=== PATIENT | female | born 1995 | race Two or more races ===

== ENCOUNTER → 2023-06-09 | Outpatient (CLI) | payer BC ==
[2023-06-09 11:13] LABS: Basophils # (auto) 0 10 ^3/uL (0-0.2); Basophils % (auto) 0.3 % (0.0-2.0); Eosinophils # (auto) 0.2 10 ^3/uL (0-0.8); Hematocrit 39.7 % (36.0-46.0); Hemoglobin 13.6 g/dL (12.2-16.2); Lymphocytes # (auto) 2.2 10 ^3/uL (0.4-5.4); Lymphocytes % (auto) 27.2 % (10.0-50.0); Mean Corpuscular Hemoglobin 30.7 pg (28.0-32.0); Mean Corpuscular Hgb Conc. 34.3 g/dL (32.0-36.0); Mean Corpuscular Volume 89.5 fL (80.0-100.0); Monocytes # (auto) 0.6 10 ^3/uL (0-1.3); Neutrophils % (auto) 62.5 % (37.0-80.0); Nucleated Red Blood Cells % 0.1 %; Red Blood Cells 4.43 10^6/uL (4.0-5.20)
[2023-06-09 11:51] LABS: Alanine Aminotransferase 13 U/L (7-40); Albumin 4.8 g/dL (3.2-4.8); Alkaline Phosphatase 91 U/L (46-116); Anion Gap 10 (5-15); Aspartate Aminotransferase 14 U/L (13-40); BUN/Creatinine Ratio 8.7 (10.0-20.0); Blood Urea Nitrogen 6 mg/dL (9-23); Calcium 9.9 mg/dL (8.5-10.1); Carbon Dioxide 24 mmol/L (20-30); Chloride 104 mmol/L (98-107); Cholesterol 170 mg/dL (< 200); Glucose 90 mg/dL (74-106); LDL Cholesterol 107 mg/dL (< 100); Potassium 3.9 mmol/L (3.5-5.1); Sodium 138 mmol/L (136-145); Triglycerides 116 mg/dL (< 150)
[2023-06-09 11:52] LABS: Bilirubin, Total 0.5 mg/dL (0.2-1.0); HDL Cholesterol 52 mg/dL (40-59); Total Protein 7.7 g/dL (5.7-8.2)
[2023-06-09 11:56] LABS: Urine Bacteria NONE SEEN /hpf (None Seen); Urine Blood TRACE /uL (Negative); Urine Clarity Clear (Clear); Urine Color Yellow (Yellow); Urine Mucus FEW (None Seen); Urine Protein, UAD Negative (Negative); Urine Urobilinogen Normal (Negative); Urine WBC <1 /hpf (0 - 5)
== END | disposition home or self-care (01) ==
LOC: LAB 10:37
DX: Z00.01 Encounter for general adult medical examination with abnormal findings (principal); R79.89 Other specified abnormal findings of blood chemistry; E78.5 Hyperlipidemia, unspecified; E55.9 Vitamin D deficiency, unspecified
CPT/HCPCS: 36415; 80053; 80061; 81001; 82306; 83036; 84439; 84443; 85025

== ENCOUNTER → 2024-03-12 | Outpatient (CLI) | payer BC | END | disposition home or self-care (01) | LOC: LAB 15:39 | DX: Z32.00 Encounter for pregnancy test, result unknown (principal) | CPT/HCPCS: 36415; 84702 ==

== ENCOUNTER → 2024-03-14 | Outpatient (CLI) | payer BC | END | disposition home or self-care (01) | LOC: LAB 08:36 | DX: Z32.00 Encounter for pregnancy test, result unknown (principal) | CPT/HCPCS: 36415; 84702 ==

== ENCOUNTER → 2024-03-19 | Outpatient (CLI) | payer BC ==
[2024-03-19 09:58] LABS: Basophils # (auto) 0 10 ^3/uL (0-0.2); Basophils % (auto) 0.3 % (0.0-2.0); Eosinophils # (auto) 0.3 10 ^3/uL (0-0.8); Eosinophils % (auto) 2.7 % (0.0-7.0); Hematocrit 37.2 % (36.0-46.0); Hemoglobin 12.6 g/dL (12.2-16.2); Lymphocytes # (auto) 2.6 10 ^3/uL (0.4-5.4); Lymphocytes % (auto) 24.3 % (10.0-50.0); Mean Corpuscular Hemoglobin 30.7 pg (28.0-32.0); Mean Corpuscular Hgb Conc. 33.9 g/dL (32.0-36.0); Mean Corpuscular Volume 90.6 fL (80.0-100.0); Monocytes # (auto) 0.7 10 ^3/uL (0-1.3); Monocytes % (auto) 6.5 % (0.0-12.0); Neutrophils % (auto) 66.2 % (37.0-80.0); Platelet Count (auto) 290 10^3/uL (140-450); Red Cell Distribution Width 13.5 % (11.8-14.3); White Blood Cell 10.6 10^3/uL (4.4-10.8)
[2024-03-19 10:03] LABS: Urine Bacteria FEW /hpf (None Seen); Urine Blood Negative /uL (Negative); Urine Clarity Clear (Clear); Urine Color Light-Yellow (Yellow); Urine Protein, UAD Negative (Negative); Urine Specific Gravity 1.014 (1.001-1.035); Urine Urobilinogen Normal (Negative); Urine WBC <1 /hpf (0 - 5)
[2024-03-19 10:55] LABS: Alanine Aminotransferase 17 U/L (7-40); Albumin 4.6 g/dL (3.2-4.8); Alkaline Phosphatase 91 U/L (46-116); Anion Gap 8 (5-15); Aspartate Aminotransferase < 8 U/L (13-40); BUN/Creatinine Ratio 16.9 (10.0-20.0); Blood Urea Nitrogen 10 mg/dL (9-23); Calcium 9.8 mg/dL (8.7-10.4); Carbon Dioxide 26 mmol/L (20-31); Chloride 103 mmol/L (98-107); Cholesterol 144 mg/dL (< 200); Glucose 90 mg/dL (74-106); HDL Cholesterol 54 mg/dL (40-59); LDL Cholesterol 85 mg/dL (< 100); Potassium 3.3 mmol/L (3.5-5.1); Sodium 137 mmol/L (136-145); Triglycerides 82 mg/dL (< 150)
[2024-03-19 10:56] LABS: Bilirubin, Total 0.3 mg/dL (0.2-1.0); Thyroid Stimulating Hormone 3.77 uIU/mL (0.55-4.78); Total Protein 7.4 g/dL (5.7-8.2)
[2024-03-19 11:04] LABS: Beta HCG, Quantitative 13658.7 mIU/mL (1.5-4.2)
[2024-03-19 11:23] LABS: Amphetamine Screen, Urine Neg (NEGATIVE); Barbiturate Scree,Urine Neg (NEGATIVE); Benzodiazephine Screen, Urine Neg (NEGATIVE); Cannabinoid Screen, Urine Neg (NEGATIVE); Cocaine Screen, Urine Neg (NEGATIVE); Opiate Scree,Urine Neg (NEGATIVE); Phencyclidine Screen, Urine Neg (NEGATIVE)
[2024-03-20 06:06] LABS: RPR Non Reactive (Non Reactive)
[2024-03-20 07:07] LABS: Varicella Zoster IgG Antibody Reactive (Non Reactive)
== END | disposition home or self-care (01) ==
LOC: LAB 09:01
DX: Z34.00 Encounter for supervision of normal first pregnancy, unspecified trimester (principal); Z31.430 Encounter of female for testing for genetic disease carrier status for procreative management; Z36.0 Encounter for antenatal screening for chromosomal anomalies; N39.0 Urinary tract infection, site not specified
CPT/HCPCS: 36415; 80053; 80061; 80307; 81001; 81025; 84439; 84443; 84702; 85025; 86592; 86762; 86765; 86787; 86850; 86900; 86901; 87340; 87902

== ENCOUNTER 2024-10-09 01:19 | Emergency (ER) | payer OTHER, BC, MEDICAID ==
[~2024-10-09] VITALS: Ht 160 cm; Wt 106.2 kg
[2024-10-09 01:42] VITALS: BP 120/83; PULSE 92; RESP 18; TEMP 98; O2SAT 97
--- NOTE | 2024-10-09 01:42 | ED.PDOC ---
History of Present Illness EXP HPI Comments 29 year old female presents to ER with complaints of needle-stick injury x 1 day. 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 Denies seeing any blood on the needle she was poked with and reports mild blood from left index finger after needle stick injury occurred. States she immediately washed the needle stick area with antibacterial soap and water. Denies any known blood born pathogen diseases for her or from the patient that's used needle poked her. Patient does report she is 35 weeks . Denies any further symptoms/complaints Chief Complaint: Post Exposure Time Seen by MD: 01:26 Primary Care Provider: UNKNOWN Reviewed Notes: Nurses Notes, Medications, Allergies Allergies: Coded Allergies: NO KNOWN ALLERGIES (Unverified , 10/09/24) Information Source: Patient Mode of Arrival: Ambulatory Past Medical History PAST MEDICAL HISTORY: Asthma Surgical History: Cholecystectomy HOSPITAL RECRUITER History: No Pertinent HOSPITAL RECRUITER History Family History Family History: Unknown Social History Smoker: Non-Smoker Alcohol: Denies ETOH Use Drugs: Denies Drug Use Lives In: Home Constitutional: denies: chills, diaphoresis, fatigue, fever, malaise, sweats, weakness, others EENTM: denies: blurred vision, double vision, ear bleeding, ear discharge, ear drainage, ear pain, ear ringing, eye pain, eye redness, hearing loss, mouth pain, mouth swelling, nasal discharge, nose bleeding, nose congestion, nose pain, photophobia, tearing, throat pain, throat swelling, voice changes, others Respiratory: denies: cough, hemoptysis, orthopnea, SOB at rest, shortness of breath, SOB with excertion, stridor, wheezing, others Cardiovascular: denies: chest pain, dizzy spells, diaphoresis, Dyspnea on exertion, edema, irregular heart beat, left arm pain, lightheadedness, palpitations, PND, syncope, others Gastrointestinal: denies: abdomen distended, abdominal pain, blood streaked bowels, constipated, diarrhea, dysphagia, difficulty swallowing, hematemesis, melena, nausea, poor appetite, poor fluid intake, rectal bleeding, rectal pain, vomiting, others Genitourinary: denies: abnormal vagina bleeding, burning, dyspareunia, dysuria, flank pain, frequency, hematuria, incontinence, pain, , vagina discharge, urgency, others Neurological: denies: dizziness, fainting, headache, left sided numbness, left sided weakness, numbness, paresthesia, pre-existing deficit, right sided numbness, right sided weakness, seizure, speech problems, tingling, tremors, weakness, others Musculoskeletal: denies: back pain, gout, joint pain, joint swelling, muscle pain, muscle stiffness, neck pain, others Integumetry: reports: others (As stated in HPI) Allergic/Immunocompromised: denies: Difficulty Healing, Frequent Infections, Hives, Itching, others Hematologic/Lymphatic: denies: anemia, blood clots, easy bleeding, easy bruising, swollen glands, others Endocrine: denies: excessive hunger, excessive sweating, excessive thirst, excessive urination, flushing, intolerance to cold, intolerance to heat, unexplained weight gain, unexplained weight loss, others Psychiatric: denies: anxiety, bipolar disorder, depression, hopeless, panic disorder, schizophrenia, sleepless, suicidal, others Physical Exam General Appearance: No Apparent Distress HEENT: PERRL/EOMI Neck: Full Range of Motion, Non-Tender, Normal Respiratory: Chest Non-Tender, Lungs Clear, No Accessory Muscle Use, No Respiratory Distress, Normal Breath Sounds Cardiovascular: No Murmur, No Gallop, Regular Rate/Rhythm Breast Exam: Deferred Gastrointestinal: Non Tender, No Pulsatile Mass, Soft Genitalia: Deferred Pelvic: Deferred Rectal: Deferred Extremities: Normal capillary refill, Normal range of motion Neurologic: Alert, quilt stuffer II-XII nml as Tested, No Motor Deficits, Normal Affect, Normal Mood, No Sensory Deficits Cerebellar Function: Normal Reflexes: Normal Skin: Dry, Warm, Other (<.5cm puncture jayleen noted to left index finger. No further skin changes noted. Patient able to fully move all fingers of left hand. Pulses intact) Peripheral Pulses: 2+ Radial (R), 2+ Radial (L), 2+ Brachial (R), 2+ Brachial (L) Lymphatic: No Adenopathy Was a procedure done? Was a procedure done?: No Sedation Sedation?: No Differential Diagnosis (EXP) Differential Diagnosis: Other (Retained foreign body, neurovascular injury, laceration) X-Ray, Labs, Meds, VS Vital Signs Date Time Temp Pulse Resp B/P (MAP) Pulse Ox O2 Delivery O2 Flow Rate FiO2 10/09/24 01:29 98.0 92 18 120/83 (95) 97 98.0 Benefits/risks of starting prophylactic HIV treatment reviewed and discussed with patient in full details. Patient verbalized understanding-refusing prophylactic HIV treatment Post exposure labs were ordered Workhans's rachelle paperwork filled out Advised to follow up with PCP, workhans's comp PCP and OBGYN in 1-2 days Patient verbalized understanding and agreeable with current plan of care Advised to return to ER immediately if symptoms worsen Time of 1ST Reevaluation: 01:24 Reevaluation 1ST: N/A Patient Education/Counseling: Diagnosis, Treatment, Prognosis, Need For Follow Up Family Education/Counseling: No Family Present Departure 1 Departure Time of Disposition: 01:40 Impression: Primary Impression: Needle stick injury of finger of left hand Additional Impression: Third trimester Disposition: 01 HOME / SELF CARE / HOMELESS Condition: Stable Discharged With: Self Critical Care Note Critical Care Time?: No Stability Stability form required: No Heart Score Heart Score: Heart Score Response (Comments) Value History N/A 0 EKG N/A 0 Age N/A 0 Risk Factors N/A 0 Troponin N/A 0 Total 0 NIDA LE October 09, 2024 01:41
[2024-10-10 10:25] LABS: Hepatitis B Surface Antibody Negative (Negative); Hepatitis B Surface Antigen Negative (Negative)
== END 2024-10-09 02:02 | disposition home or self-care (01) ==
LOC: ER 01:24 → EEVIPCON 01:24 → ER 02:02
DX: O9A.213 Injury, poisoning and certain other consequences of external causes complicating pregnancy, third trimester (principal); S69.92XA Unspecified injury of left wrist, hand and finger(s), initial encounter; O99.513 Diseases of the respiratory system complicating pregnancy, third trimester; J45.909 Unspecified asthma, uncomplicated; Z90.49 Acquired absence of other specified parts of digestive tract; Z3A.35 35 weeks gestation of pregnancy; W46.0XXA Contact with hypodermic needle, initial encounter; Y93.89 Activity, other specified; Y92.238 Other place in hospital as the place of occurrence of the external cause; Y99.0 Civilian activity done for income or pay
CPT/HCPCS: 36415; 86703; 86706; 86803; 87340

== ENCOUNTER 2024-11-01 21:05 | Inpatient (IN) | payer BC, MEDICAID ==
[~2024-11-01] VITALS: Ht 160 cm; Wt 108.4 kg
[2024-11-01] MEDS ORDERED: NALBUPHINE HCL 10 MG/1ml INJECTION IV PRN (21:15)
[2024-11-01] MEDS ORDERED: LIDOCAINE 2%HCL (LOCAL ANESTH.) INJ 20ML MDV IJ PRN (21:15)
[2024-11-01 21:48] LABS: Basophils # (auto) 0 10 ^3/uL (0-0.2); Basophils % (auto) 0.2 % (0.0-2.0); Eosinophils # (auto) 0.3 10 ^3/uL (0-0.8); Eosinophils % (auto) 2.6 % (0.0-7.0); Hematocrit 35.7 % (36.0-46.0); Lymphocytes # (auto) 1.8 10 ^3/uL (0.4-5.4); Lymphocytes % (auto) 19.3 % (10.0-50.0); Mean Corpuscular Hemoglobin 28.5 pg (28.0-32.0); Mean Corpuscular Hgb Conc. 33.7 g/dL (32.0-36.0); Mean Corpuscular Volume 84.6 fL (80.0-100.0); Monocytes # (auto) 0.6 10 ^3/uL (0-1.3); Monocytes % (auto) 5.8 % (0.0-12.0); Neutrophils # (auto) 6.8 10 ^3/uL (1.6-8.6); Neutrophils % (auto) 72.1 % (37.0-80.0); Nucleated Red Blood Cells % 0.3 %; Platelet Count (auto) 288 10^3/uL (140-450); Red Blood Cells 4.22 10^6/uL (4.0-5.20); Red Cell Distribution Width 15.4 % (11.8-14.3); White Blood Cell 9.5 10^3/uL (4.4-10.8)
[2024-11-01 21:56] LABS: Urine Bacteria FEW /hpf (None Seen); Urine Blood Negative /uL (Negative); Urine Clarity Clear (Clear); Urine Color Light-Yellow (Yellow); Urine Protein, UAD Negative (Negative); Urine Specific Gravity 1.015 (1.001-1.035); Urine Squamous Epithelial Cell FEW /hpf (<5); Urine Urobilinogen Normal (Negative); Urine WBC 2 /HPF (0-5); Urine pH 6.5 (5.0-9.0)
[2024-11-01 22:06] LABS: Alanine Aminotransferase 12 U/L (7-40); Albumin 4.2 g/dL (3.2-4.8); Anion Gap 12 (5-15); Aspartate Aminotransferase 17 U/L (0-34); BUN/Creatinine Ratio 10.5 (10.0-20.0); Carbon Dioxide 21 mmol/L (20-31); Chloride 107 mmol/L (98-107); Sodium 140 mmol/L (136-145); Total Protein 6.9 g/dL (5.7-8.2)
[2024-11-01 22:06] LABS: Amphetamine Screen, Urine Neg (NEGATIVE); Barbiturate Scree,Urine Neg (NEGATIVE); Benzodiazephine Screen, Urine Neg (NEGATIVE); Cannabinoid Screen, Urine Neg (NEGATIVE); Cocaine Screen, Urine Neg (NEGATIVE); Opiate Scree,Urine Neg (NEGATIVE); Phencyclidine Screen, Urine Neg (NEGATIVE)
[2024-11-01 22:10] LABS: INR 0.88 (0.9-1.15); Partial Thromboplastin Time 29.3 SEC (24.5-34.5); Prothrombin Time 9.4 sec (9.3-11.8)
[2024-11-01 22:14] LABS: Bilirubin, Total 0.2 mg/dL (0.2-1.0)
[2024-11-01 22:15] LABS: Alkaline Phosphatase 164 U/L (46-116); Blood Urea Nitrogen 6 mg/dL (9-23); Glucose 120 mg/dL (74-106)
--- NOTE | 2024-11-02 03:18 | DVHHP ---
ADMIT DATE: 11/01/2024 CHIEF COMPLAINT: Induction for borderline low JOCELINE. HISTORY OF PRESENT ILLNESS: The patient is a 29-year-old 1, para 0 with EDC of 11/11, estimated gestational age of 38 and 6/7, admitted for induction of labor. The patient's JOCELINE was 6 cm. Subsequently, the patient requested getting induced. She denies having any bleeding or rupture of membrane. PAST MEDICAL HISTORY: None. PAST SURGICAL HISTORY: None. SOCIAL HISTORY: None. FAMILY HISTORY: None. OB AND CITY CLERK HISTORY: Primigravid, GBS positive, O positive, rubella immune. ALLERGIES: No known drug allergies. REVIEW OF SYSTEMS: Consistent with HPI. PHYSICAL EXAMINATION: VITAL SIGNS: Stable, afebrile. HEENT: Within normal limits. CARDIOVASCULAR: Regular rate and rhythm. LUNGS: Clear to auscultation. BREASTS: Symmetrical. No masses. ABDOMEN: Gravid. Positive heart. PELVIC: 1.5 cm, 20%, -2. EXTREMITIES: No clubbing, cyanosis, or edema. IMPRESSION: Intrauterine at 38 and 6/7, for induction of labor secondary to borderline low JOCELINE. PLAN: Informed consent obtained. We will proceed with Cytotec. All questions answered. The patient wishes to proceed with induction of labor. Sasha Kennedy DO MZ/HEM TID: [id number] RECEIPT: [id number]
[2024-11-02] MEDS: LACTATED RINGER'S 1,000 ML IV SCH (05:15)
[2024-11-02] MEDS: miSOPROStol 50 MCG per PRE-CUT 1/2 TAB PO PRN (05:35)
[2024-11-02] MEDS: WITCH HAZEL-GLYCERIN PAD TOP PRN (05:36)
[2024-11-02] MEDS: PHISODERM TOP SOLN 240ML BTL TOP PRN (05:36)
[2024-11-02] MEDS: DERMOPLAST 60ML BOTTLE TOP PRN (05:36)
[2024-11-02] MEDS: PENICILLIN G POT 5MIL/D5 50ML 50 ML IV ONE (07:00)
--- NOTE | 2024-11-02 09:19 | DVHPN2 ---
Chief Complaints Patient reports: No new complaints Nursing reports: No new complaints Objective Medications Current Medications Medications (Trade) Dose Ordered Sig/Tala Route PRN Reason Start Time Stop Time Status Last Admin Benzocaine (Dermoplast) 1 applic PRN PRN TOP PERINEAL AREA DISCOMFORT 11/01/24 21:15 11/02/24 05:36 Lactated Ringer's 1,000 ml @ 125 mls/hr Q8H IV 11/01/24 21:15 11/02/24 05:36 Lidocaine HCl (Xylocaine) 20 ml ONCE PRN IJ PERINEAL AREA DISCOMFORT 11/01/24 21:15 Misoprostol (Cytotec) 50 mcg Q4HPRN PRN PO CERVICAL RIPENING 11/01/24 23:30 11/02/24 05:37 Nalbuphine HCl (Nubain) 10 mg Q4HP PRN IV MODERATE PAIN (4-6 PAIN SCALE) 11/01/24 21:15 Penicillin G Potassium [id number] units/Dextrose 50 ml @ 100 mls/hr Q4H IV 11/02/24 11:00 Sodium Lauryl Sulfate (Phisoderm) 240 ml PRN PRN TOP PERINEAL AREA DISCOMFORT 11/01/24 21:15 11/02/24 05:36 Witch Isabelle (Tucks) 1 pad PRN PRN TOP PERINEAL AREA DISCOMFORT 11/01/24 21:15 11/02/24 05:36 Others ve-2cm/50/-2 Studies Laboratory Tests 11/01/24 21:30 Test 11/01/24 21:30 Range/Units Serum Glucose 120 H 74-106 mg/dL Ass/Plan Assessment iol Plan pt recieved 2 cytotec pt endorsed to dr rebollar oncall physician Visit Coding OBGYN Date of Service: Nov 02, 2024 Billing Provider: RC PÉREZ DO 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
[2024-11-02] MEDS ORDERED: PENICILLIN G POTASSIUM 2,500,000 UNITS in D5W 5% 50 ML IV SCH (11:00)
--- NOTE | 2024-11-02 17:20 | DVHPN2 ---
OB Labor Progress Note Date and Time Seen Date Seen: Nov 02, 2024 Time Seen: 17:18 Subjective Patient reports: No new complaints Objective Vital Signs Afeb VS stable Monitoring Method Monitoring Method: External Heart Rate Heart Rate Baseline: 140 Heart Rate Variability: Moderate Presence of FHR Accelerations: Yes Presence of FHR Decelerations: No Contractions Contractions Frequency: Occasional Contractions Intensity: Moderate Membranes Membranes: Intact Vaginal Exam Vag Exam Deferred: No Vaginal Exam Dilation: 2 Vaginal Exam Effacement: 50 Vaginal Exam Station: -3 Vaginal Exam Presentation: VTX Vaginal Exam Show: Small Medications Medications - Pitocin: No Medication - Epidural: No Medication - Other Spondo Cervical dilation balloon placed , tolerated well Each balloon inflated to 70 ml. Lab Results Lab Results Current Medications Medications (Trade) Dose Ordered Sig/Tala Start Time Stop Time Status Last Admin Dose Admin Lactated Ringer's 1,000 ml @ 125 mls/hr Q8H 11/01/24 21:15 11/02/24 13:31 125 MLS/HR Nalbuphine HCl (Nubain) 10 mg Q4HP PRN 11/01/24 21:15 Witch Isabelle (Tucks) 1 pad PRN PRN 11/01/24 21:15 11/02/24 05:36 1 PAD Sodium Lauryl Sulfate (Phisoderm) 240 ml PRN PRN 11/01/24 21:15 11/02/24 05:36 240 ML Benzocaine (Dermoplast) 1 applic PRN PRN 11/01/24 21:15 11/02/24 05:36 1 APPLIC Lidocaine HCl (Xylocaine) 20 ml ONCE PRN 11/01/24 21:15 Penicillin G Potassium 50 ml @ 100 mls/hr ONCE ONCE 11/02/24 07:00 11/02/24 07:29 DC Penicillin G Potassium 1357082 units/Dextrose 50 ml @ 100 mls/hr Q4H 11/02/24 11:00 Misoprostol (Cytotec) 50 mcg Q4HPRN PRN 11/01/24 23:30 11/02/24 13:31 50 MCG Laboratory Tests Test 11/01/24 21:30 11/01/24 21:10 Range/Units White Blood Count 9.5 4.4-10.8 10^3/uL Red Blood Count 4.22 4.0-5.20 10^6/uL Hemoglobin 12.0 L 12.2-16.2 g/dL Hematocrit 35.7 L 36.0-46.0 % Mean Corpuscular Volume 84.6 80.0-100.0 fL Mean Corpuscular Hemoglobin 28.5 28.0-32.0 pg Mean Corpuscular Hemoglobin Concent 33.7 32.0-36.0 g/dL Red Cell Distribution Width 15.4 H 11.8-14.3 % Platelet Count 288 140-450 10^3/uL Mean Platelet Volume 9.3 6.9-10.8 fL Neutrophils (%) (Auto) 72.1 37.0-80.0 % Lymphocytes (%) (Auto) 19.3 10.0-50.0 % Monocytes (%) (Auto) 5.8 0.0-12.0 % Eosinophils (%) (Auto) 2.6 0.0-7.0 % Basophils (%) (Auto) 0.2 0.0-2.0 % Neutrophils # (Auto) 6.8 1.6-8.6 10 ^3/uL Lymphocytes # (Auto) 1.8 0.4-5.4 10 ^3/uL Monocytes # (Auto) 0.6 0-1.3 10 ^3/uL Eosinophils # (Auto) 0.3 0-0.8 10 ^3/uL Basophils # (Auto) 0 0-0.2 10 ^3/uL Nucleated Red Blood Cells 0.3 % Prothrombin Time 9.4 9.3-11.8 sec Prothrombin Time INR 0.88 L 0.9-1.15 Activated Partial Thromboplast Time 29.3 24.5-34.5 SEC Sodium Level 140 136-145 mmol/L Potassium Level 4.0 3.5-5.1 mmol/L Chloride Level 107 98-107 mmol/L Carbon Dioxide Level 21 20-31 mmol/L Anion Gap 12 5-15 Blood Urea Nitrogen 6 L 9-23 mg/dL Creatinine 0.57 0.550-1.02 mg/dL Glomerular Filtration Rate Calc 125 >90 mL/min BUN/Creatinine Ratio 10.5 10.0-20.0 Serum Glucose 120 H 74-106 mg/dL Calcium Level 10.0 8.7-10.4 mg/dL Total Bilirubin 0.2 0.2-1.0 mg/dL Aspartate Amino Transferase (AST) 17 0-34 U/L Alanine Aminotransferase (ALT) 12 7-40 U/L Alkaline Phosphatase 164 H 46-116 U/L Total Protein 6.9 5.7-8.2 g/dL Albumin 4.2 3.2-4.8 g/dL Treponema pallidum Antibody Non-reactive Negative Hepatitis C Antibody Negative Negative Urine Color Light-yellow Yellow Urine Clarity Clear Clear Urine pH 6.5 5.0-9.0 Urine Specific [place] 1.015 1.001-1.035 Urine Protein Negative Negative Urine Ketones Negative Negative Urine Blood Negative Negative /uL Urine Nitrite Negative Negative Urine Bilirubin Negative Negative Urine Urobilinogen Normal Negative mg/dL Urine Leukocyte Esterase Negative Negative /uL Urine RBC <1 0 - 4 /hpf Urine Microscopic WBC 2 0-5 /HPF Urine Squamous Epithelial Cells Few <5 /hpf Urine Bacteria Few H None Seen /hpf Urine Glucose Normal Normal mg/dL Urine Opiates Screen Neg NEGATIVE Urine Fentanyl Screen Neg NEGATIVE Urine Barbiturates Screen Neg NEGATIVE Urine Phencyclidine Screen Neg NEGATIVE Urine Amphetamines Screen Neg NEGATIVE Urine Benzodiazepines Screen Neg NEGATIVE Urine Cocaine Screen Neg NEGATIVE Urine Cannabinoids Screen Neg NEGATIVE Assessment Assessment IUP 39 wk, Induction of labor GBS POS Borderline low JOCELINE 6cm Categ 1 tracing Plan Plan Continue current mgmt Induction of labor Plan discussed with: Patient Visit Coding OBGYN Date of Service: Nov 02, 2024 Billing Provider: NASIMA KENT DO BED MANAGER Common Visit Codes: 13739-PUQ/OBS SAME DATE (MOD) BED MANAGER Procedure Codes: 68892-43- NON-STRESS TEST NASIMA KENT DO Nov 02, 2024 17:20
[2024-11-02] MEDS: LACT. RINGERS/OXYTOCIN 20UNITS 500 ML IV ONE (18:31)
[2024-11-02] MEDS ORDERED: NALOXONE HCL 0.4 MG/ML VIAL IV ONE (20:30)
[2024-11-02] MEDS: LACTATED RINGER'S 500 ML IV ONE (20:30)
[2024-11-02] MEDS ORDERED: LIDOCAINE 1%-Mpf/Epinephrine 1:200,000 30ml VIAL IJ ONE (20:30)
[2024-11-02] MEDS ORDERED: TERBUTALINE SULFATE 1 MG/ML 1ML VIAL SC PRN (22:30)
[2024-11-02] MEDS: LACT. RINGERS/OXYTOCIN 20UNITS 1,000 ML IV SCH (22:59)
[2024-11-02] MEDS: ROPIVACAINE HCL 200 ML ONE (23:03)
[2024-11-02] MEDS: PENICILLIN G POTASSIUM 2,500,000 UNITS in D5W 5% 50 ML IV SCH (23:30)
--- NOTE | 2024-11-03 06:10 | DVHPN2 ---
OB Labor Progress Note Date and Time Seen Date Seen: Nov 03, 2024 Time Seen: 06:06 Subjective Patient reports: No new complaints Objective Vital Signs Afeb VS stable Monitoring Method Monitoring Method: External (IUPC placed) Heart Rate Heart Rate Baseline: 130 Heart Rate Variability: Moderate Presence of FHR Accelerations: Yes Presence of FHR Decelerations: No Contractions Contractions Intensity: MVU (150-180) Contractions Resting Tone: Relaxed Membranes Membranes: Ruptured Amniotic Fluid Color: Clear Vaginal Exam Vag Exam Deferred: No Vaginal Exam Dilation: 4 Vaginal Exam Effacement: 50 Vaginal Exam Station: -3 Vaginal Exam Presentation: VTX Vaginal Exam Show: None Medications Medications - Pitocin: Yes (6 mu/min) Medication - Epidural: Yes Lab Results Lab Results Current Medications Medications (Trade) Dose Ordered Sig/Tala Start Time Stop Time Status Last Admin Dose Admin Lactated Ringer's 1,000 ml @ 125 mls/hr Q8H 11/01/24 21:15 11/02/24 21:15 125 MLS/HR Nalbuphine HCl (Nubain) 10 mg Q4HP PRN 11/01/24 21:15 Witghanshyam Steeleel (Tucks) 1 pad PRN PRN 11/01/24 21:15 11/02/24 05:36 1 PAD Sodium Lauryl Sulfate (Phisoderm) 240 ml PRN PRN 11/01/24 21:15 11/02/24 05:36 240 ML Benzocaine (Dermoplast) 1 applic PRN PRN 11/01/24 21:15 11/02/24 05:36 1 APPLIC Lidocaine HCl (Xylocaine) 20 ml ONCE PRN 11/01/24 21:15 Penicillin G Potassium 50 ml @ 100 mls/hr ONCE ONCE 11/02/24 07:00 11/02/24 07:29 DC 11/02/24 19:28 100 MLS/HR Penicillin G Potassium [id number] units/Dextrose 50 ml @ 100 mls/hr Q4H 11/02/24 11:00 11/02/24 22:49 DC Misoprostol (Cytotec) 50 mcg Q4HPRN PRN 11/01/24 23:30 11/02/24 13:31 50 MCG Ephedrine Sulfate (ePHEDrine SULFATE) 10 mg PRN ONCE 11/02/24 20:30 11/02/24 20:35 DC Lactated Ringer's 500 ml @ 500 mls/hr Q1H ONCE 11/02/24 20:30 11/02/24 21:29 DC 11/02/24 20:30 500 MLS/HR Oxytocin 1,000 ml @ 6 ml/hr Q24H 11/02/24 22:30 11/02/24 22:59 6 ML/HR Terbutaline Sulfate (Brethine Inj) 0.25 mg ONCE PRN 11/02/24 22:30 Oxytocin 500 ml @ 999 mls/hr Q31M ONCE 11/02/24 22:30 11/02/24 23:00 DC Oxytocin 500 ml @ 125 mls/hr Q4H ONCE 11/02/24 22:50 11/03/24 02:49 DC Penicillin G Potassium 2583143 units/Dextrose 50 ml @ 100 mls/hr Q4H 11/02/24 23:30 11/03/24 03:56 100 MLS/HR Laboratory Tests Test 11/01/24 21:30 11/01/24 21:10 Range/Units White Blood Count 9.5 4.4-10.8 10^3/uL Red Blood Count 4.22 4.0-5.20 10^6/uL Hemoglobin 12.0 L 12.2-16.2 g/dL Hematocrit 35.7 L 36.0-46.0 % Mean Corpuscular Volume 84.6 80.0-100.0 fL Mean Corpuscular Hemoglobin 28.5 28.0-32.0 pg Mean Corpuscular Hemoglobin Concent 33.7 32.0-36.0 g/dL Red Cell Distribution Width 15.4 H 11.8-14.3 % Platelet Count 288 140-450 10^3/uL Mean Platelet Volume 9.3 6.9-10.8 fL Neutrophils (%) (Auto) 72.1 37.0-80.0 % Lymphocytes (%) (Auto) 19.3 10.0-50.0 % Monocytes (%) (Auto) 5.8 0.0-12.0 % Eosinophils (%) (Auto) 2.6 0.0-7.0 % Basophils (%) (Auto) 0.2 0.0-2.0 % Neutrophils # (Auto) 6.8 1.6-8.6 10 ^3/uL Lymphocytes # (Auto) 1.8 0.4-5.4 10 ^3/uL Monocytes # (Auto) 0.6 0-1.3 10 ^3/uL Eosinophils # (Auto) 0.3 0-0.8 10 ^3/uL Basophils # (Auto) 0 0-0.2 10 ^3/uL Nucleated Red Blood Cells 0.3 % Prothrombin Time 9.4 9.3-11.8 sec Prothrombin Time INR 0.88 L 0.9-1.15 Activated Partial Thromboplast Time 29.3 24.5-34.5 SEC Sodium Level 140 136-145 mmol/L Potassium Level 4.0 3.5-5.1 mmol/L Chloride Level 107 98-107 mmol/L Carbon Dioxide Level 21 20-31 mmol/L Anion Gap 12 5-15 Blood Urea Nitrogen 6 L 9-23 mg/dL Creatinine 0.57 0.550-1.02 mg/dL Glomerular Filtration Rate Calc 125 >90 mL/min BUN/Creatinine Ratio 10.5 10.0-20.0 Serum Glucose 120 H 74-106 mg/dL Calcium Level 10.0 8.7-10.4 mg/dL Total Bilirubin 0.2 0.2-1.0 mg/dL Aspartate Amino Transferase (AST) 17 0-34 U/L Alanine Aminotransferase (ALT) 12 7-40 U/L Alkaline Phosphatase 164 H 46-116 U/L Total Protein 6.9 5.7-8.2 g/dL Albumin 4.2 3.2-4.8 g/dL Treponema pallidum Antibody Non-reactive Negative Hepatitis C Antibody Negative Negative Urine Color Light-yellow Yellow Urine Clarity Clear Clear Urine pH 6.5 5.0-9.0 Urine Specific [place] 1.015 1.001-1.035 Urine Protein Negative Negative Urine Ketones Negative Negative Urine Blood Negative Negative /uL Urine Nitrite Negative Negative Urine Bilirubin Negative Negative Urine Urobilinogen Normal Negative mg/dL Urine Leukocyte Esterase Negative Negative /uL Urine RBC <1 0 - 4 /hpf Urine Microscopic WBC 2 0-5 /HPF Urine Squamous Epithelial Cells Few <5 /hpf Urine Bacteria Few H None Seen /hpf Urine Glucose Normal Normal mg/dL Urine Opiates Screen Neg NEGATIVE Urine Fentanyl Screen Neg NEGATIVE Urine Barbiturates Screen Neg NEGATIVE Urine Phencyclidine Screen Neg NEGATIVE Urine Amphetamines Screen Neg NEGATIVE Urine Benzodiazepines Screen Neg NEGATIVE Urine Cocaine Screen Neg NEGATIVE Urine Cannabinoids Screen Neg NEGATIVE Assessment Assessment IUP 39 wk, Induction of labor -- s/p AROM and IUPC placement -- GBS + -- Categ 1 tracing Plan Plan Continue pitocin induction, titrate to 200 MVU's Continue Radha in labor Anticipated Indications for C/S discussed w/ pt Plan discussed with: Patient Visit Coding OBGYN Date of Service: Nov 03, 2024 Billing Provider: NASIMA KENT DO PAN OPERATOR Common Visit Codes: [id number] INP/OBS CARE(MOD) NASIMA KENT DO Nov 03, 2024 06:10
[2024-11-03] MEDS: ROPIVACAINE HCL 200 ML ONE (11:50)
--- NOTE | 2024-11-03 19:03 | LDN2 ---
Labor and Delivery Note Date 11/03/24 Age 29 1 Para 1 EDC 11/11/24 EGA 38.6 Diagnosis Term , Delivered Vaginal Delivery: VTX Vacuum Assisted: No Placenta: Spontaneous Sex: Male Apgars 8/9 Amniotic Fluid: Clear Anesthesia Epidural Episiotomy: No Repaired with N/A Labs Laboratory Tests 10/09/24 01:46: Hepatitis B Surface Antigen Negative, HIV (1&2) Antibody Negative 03/19/24 09:20: Rubella Antibody Positive Blood Bank 11/01/24 21:30: Blood Type O POSITIVE Complications None Comments/Significant Med [place] uncomplicated. Visit Coding OBGYN Date of Service: Nov 03, 2024 Billing Provider: NASIMA KENT DO BLEACHING MACHINE OPERATOR Common Visit Codes: PROCEDURE ONLY BLEACHING MACHINE OPERATOR Procedure Codes: [id number] OB CARE,VAG DELIVERY NASIMA KENT DO Nov 03, 2024 19:03
[2024-11-03] MEDS: LACT. RINGERS/OXYTOCIN 20UNITS 500 ML IV ONE (19:05)
[2024-11-03 20:00] VITALS: BP 125/70; PULSE 80; RESP 18; TEMP 98; O2SAT 96
[2024-11-03] MEDS: ePHEDrine SULFATE 50 MG/ML AMP IV ONE (21:56)
[2024-11-03] MEDS: PENICILLIN G POT 5MILLION UNIT VIAL ONE (21:58)
[2024-11-03] MEDS: METHYLERGONOVINE MALEATE 0.2 MG/ML AMP IM ONE (21:58)
[2024-11-03] MEDS: STERILE WATER 10 ML ONE (21:58)
[2024-11-03] MEDS ORDERED: ONDANSETRON ODT 4 MG TAB PO PRN (22:00)
[2024-11-03] MEDS: DOCUSATE SOD 100 MG CAP PO SCH (22:00)
[2024-11-03 22:58] VITALS: BP 130/74; PULSE 80; RESP 18; TEMP 98.7; O2SAT 97
[2024-11-04 03:00] VITALS: BP 110/64; PULSE 64; RESP 18; TEMP 97.9
[2024-11-04] MEDS: CALCIUM CARB 500 MG CHEW TAB PO ONE (03:29)
[2024-11-04 07:00] VITALS: BP 131/83; PULSE 91; RESP 18; TEMP 98; O2SAT 99
[2024-11-04] MEDS ORDERED: IBU600T PO (09:16)
--- NOTE | 2024-11-04 09:19 | DVHDS2 ---
Discharge Summary Date of Admission Nov 01, 2024 at 21:05 Date of Discharge: Nov 04, 2024 Admitting Diagnosis Term , elective induction of labor 39 wk Borderline low JOCELINE 6cm Labs/Diagnostic Data: Laboratory Results Test 11/01/24 21:30 11/01/24 21:10 White Blood Count 9.5 10^3/uL (4.4-10.8) Red Blood Count 4.22 10^6/uL (4.0-5.20) Hemoglobin 12.0 g/dL (12.2-16.2) Hematocrit 35.7 % (36.0-46.0) Mean Corpuscular Volume 84.6 fL (80.0-100.0) Mean Corpuscular Hemoglobin 28.5 pg (28.0-32.0) Mean Corpuscular Hemoglobin Concent 33.7 g/dL (32.0-36.0) Red Cell Distribution Width 15.4 % (11.8-14.3) Platelet Count 288 10^3/uL (140-450) Mean Platelet Volume 9.3 fL (6.9-10.8) Neutrophils (%) (Auto) 72.1 % (37.0-80.0) Lymphocytes (%) (Auto) 19.3 % (10.0-50.0) Monocytes (%) (Auto) 5.8 % (0.0-12.0) Eosinophils (%) (Auto) 2.6 % (0.0-7.0) Basophils (%) (Auto) 0.2 % (0.0-2.0) Neutrophils # (Auto) 6.8 10 ^3/uL (1.6-8.6) Lymphocytes # (Auto) 1.8 10 ^3/uL (0.4-5.4) Monocytes # (Auto) 0.6 10 ^3/uL (0-1.3) Eosinophils # (Auto) 0.3 10 ^3/uL (0-0.8) Basophils # (Auto) 0 10 ^3/uL (0-0.2) Nucleated Red Blood Cells 0.3 % Prothrombin Time 9.4 sec (9.3-11.8) Prothrombin Time INR 0.88 (0.9-1.15) Activated Partial Thromboplast Time 29.3 SEC (24.5-34.5) Sodium Level 140 mmol/L (136-145) Potassium Level 4.0 mmol/L (3.5-5.1) Chloride Level 107 mmol/L (98-107) Carbon Dioxide Level 21 mmol/L (20-31) Anion Gap 12 (5-15) Blood Urea Nitrogen 6 mg/dL (9-23) Creatinine 0.57 mg/dL (0.550-1.02) Glomerular Filtration Rate Calc 125 mL/min (>90) BUN/Creatinine Ratio 10.5 (10.0-20.0) Serum Glucose 120 mg/dL (74-106) Calcium Level 10.0 mg/dL (8.7-10.4) Total Bilirubin 0.2 mg/dL (0.2-1.0) Aspartate Amino Transferase (AST) 17 U/L (0-34) Alanine Aminotransferase (ALT) 12 U/L (7-40) Alkaline Phosphatase 164 U/L (46-116) Total Protein 6.9 g/dL (5.7-8.2) Albumin 4.2 g/dL (3.2-4.8) Treponema pallidum Antibody Non-reactive (Negative) Hepatitis C Antibody Negative (Negative) Urine Color Light-yellow (Yellow) Urine Clarity Clear (Clear) Urine pH 6.5 (5.0-9.0) Urine Specific [place] 1.015 (1.001-1.035) Urine Protein Negative (Negative) Urine Ketones Negative (Negative) Urine Blood Negative /uL (Negative) Urine Nitrite Negative (Negative) Urine Bilirubin Negative (Negative) Urine Urobilinogen Normal mg/dL (Negative) Urine Leukocyte Esterase Negative /uL (Negative) Urine RBC <1 /hpf (0 - 4) Urine Microscopic WBC 2 /HPF (0-5) Urine Squamous Epithelial Cells Few /hpf (<5) Urine Bacteria Few /hpf (None Seen) Urine Glucose Normal mg/dL (Normal) Urine Opiates Screen Neg (NEGATIVE) Urine Fentanyl Screen Neg (NEGATIVE) Urine Barbiturates Screen Neg (NEGATIVE) Urine Phencyclidine Screen Neg (NEGATIVE) Urine Amphetamines Screen Neg (NEGATIVE) Urine Benzodiazepines Screen Neg (NEGATIVE) Urine Cocaine Screen Neg (NEGATIVE) Urine Cannabinoids Screen Neg (NEGATIVE) Other Laboratory Tests 11/01/24 21:30 Brief Hx & Hospital Course: Induction of labor w/ Cytotec and Cook's balloon AROM with IV Pitocin Normal labor, uncomplicated No lacerations Normal pp course, meeting all milestones Desires to go home today Operations or Procedures Condition at Discharge: Stable Final Diagnosis/Problems List Term , delivered Discharge Disposition: Home Discharge Instruct/Medications Diet: Regular Activity: Light activity Activity comment: Pelvic rest x 6 weeks Follow Up/Referral: [address] Kennedy Medications: Ibuprofen eRX sent PRN pain/cramps Discharge Statement: "Patient was advised to return to the ER or call 911 if any headaches, dizziness, shortness of breath, chest pain, abdominal pain, bleeding, fevers, or worsening of medical condition. Patient was counseled about treatment plan, medications, possible side effects, patientverbalized understanding. All questions were answered to the best of my ability. This discharge took greater then 30 minutes in planning, reviewing documentation, counseling the patient, and discussing with other team members." ASSESSMENT ASSESSMENT Assessment Term , delivered Visit Coding OBGYN Date of Service: Nov 04, 2024 Billing Provider: NASIMA KENT DO STRETCHING MACHINE OPERATOR Common Visit Codes: [id number]/[id number] DISCH DAY <30MIN NASIMA KENT DO Nov 04, 2024 09:19
[2024-11-04 11:30] VITALS: BP 117/69; PULSE 83; RESP 16; TEMP 98.1; O2SAT 99
[2024-11-04] MEDS: ACETAMINOPHEN 325 MG TAB PO PRN (12:03)
[2024-11-04 15:00] VITALS: BP 136/74; PULSE 87; RESP 18; TEMP 98.9; O2SAT 97
[2024-11-04 18:00] VITALS: BP 140/80; PULSE 94; RESP 17; TEMP 98.1; O2SAT 99
[2024-11-04] MEDS: IBUPROFEN 600 MG TAB PO PRN (18:50)
[2024-11-04 19:00] VITALS: BP 132/70; PULSE 84; RESP 16; TEMP 98.1; O2SAT 99
== END 2024-11-04 20:35 | disposition home or self-care (01) | DRG 807 ==
LOC: LDRP 21:05
PROVIDERS: ADMIT Obstetrics & Gynecology; ATTEND Obstetrics & Gynecology
PROC: 10E0XZZ Delivery of Products of Conception, External Approach (ICD-10-PCS; principal; 2024-11-03)
PROC: 10907ZC Drainage of Amniotic Fluid, Therapeutic from Products of Conception, Via Natural or Artificial Opening (ICD-10-PCS; 2024-11-03)
PROC: 3E0DXGC Introduction of Other Therapeutic Substance into Mouth and Pharynx, External Approach (ICD-10-PCS; 2024-11-03)
PROC: 0U7C7DJ Dilation of Cervix with Intraluminal Device, Temporary, Via Natural or Artificial Opening (ICD-10-PCS; 2024-11-03)
PROC: 3E033VJ Introduction of Other Hormone into Peripheral Vein, Percutaneous Approach (ICD-10-PCS; 2024-11-03)
PROC: 3E0R3BZ Introduction of Anesthetic Agent into Spinal Canal, Percutaneous Approach (ICD-10-PCS; 2024-11-03)
PROC: 00HU33Z Insertion of Infusion Device into Spinal Canal, Percutaneous Approach (ICD-10-PCS; 2024-11-03)
DX: O99.824 Streptococcus B carrier state complicating childbirth (principal); Z37.0 Single live birth; Z3A.39 39 weeks gestation of pregnancy
CPT/HCPCS: 36415; 59025; 59200; 59409; 62282; 80053; 80307; 81001; 81002; 85025; 85610; 85730; 86780; 86803; 86850; 86900; 86901; 94760; 94762; 96360; 96361; 96365; 96366; G0378; J2540; J2590; J7060